=== PATIENT | female | born 1955 | race African-American/Black ===

== ENCOUNTER 2018-12-05 23:41 | Inpatient (IN) | payer MEDICARE, MEDICAID ==
[~2018-12-05] VITALS: Ht 149.9 cm; Wt 72.1 kg
[~2018-12-05 23:41] MED LIST: AMBIEN PO; BENADRYL PO; CLON0.1T PO; DIAZ2TAB PO; DILANTIN PO; METO-539 PO; NITR0.4T49 SL; SOMA PO; TYLENOL PO
[2018-12-06 01:09] LABS: BASOPHILS % 0.2 % (0.0-2.0); EOSINOPHILS % 0.9 % (0.0-5.0); HEMATOCRIT. 41.8 % (36.0-48.0); HEMOGLOBIN. 13.8 g/dL (12.0-16.0); LYMPHOCYTES % 8.6 % (20.0-50.0); MEAN CORPUSCULAR VOLUME 99.8 fL (81.0-99.0); MEAN PLATELET VOLUME 8.6 fl (7.4-10.4); MONOCYTES % 12.8 % (2.0-8.0); NEUTROPHILS % 77.5 % (40.0-76.0); PLATELET 168 x1000/uL (130-400); RED BLOOD CELL COUNT 4.18 mill/uL (4.2-5.4); RED CELL DISTRIBUTION WIDTH 14.1 % (11.6-14.6)
[2018-12-06 01:14] LABS: CHLORIDE 105 mEq/L (98-107)
[2018-12-06 01:19] LABS: ETHANOL BLOOD < 10 mg/dL
[2018-12-06] MEDS ORDERED: SODIUM CHLORIDE 0.9% 1,000 ML IV SCH (03:09)
[2018-12-06 03:10] LABS: CREATINE KINASE 869 IU/L (26-192)
[2018-12-06] MEDS ORDERED: MAGNESIUM/ALUMINUM HYDROXIDE/SIMETHICONE 30ML UDC PO PRN (03:15)
[2018-12-06] MEDS ORDERED: ONDANSETRON HCL 4MG/2ML INJ IV PRN (03:15)
[2018-12-06] MEDS ORDERED: DIPHENHYDRAMINE 50MG/ML VIAL IV PRN (03:15)
[2018-12-06] MEDS ORDERED: CLONIDINE 0.1MG TABLET PO PRN (03:15)
[2018-12-06] MEDS ORDERED: DEXTROSE 50% WATER 50ML SYRINGE IV PRN (04:00)
[2018-12-06] MEDS ORDERED: DEXT 5%/0.45% NACL 1000ML 1,000 ML IV SCH (04:00)
[2018-12-06] MEDS ORDERED: INSULIN LISPRO 100 UNITS/ML SUBCUT SCH (08:20)
[2018-12-06] MEDS ORDERED: BLOOD SUGAR DIAGNOSTIC STRIP TEST SCH (09:00)
[2018-12-06 11:30] VITALS: BP 121/67
[2018-12-06 12:00] VITALS: BP 121/67
[2018-12-06 12:27] LABS: *AMPHETAMINES SCREEN URINE NEGATIVE (NEGATIVE)
[2018-12-06 12:28] LABS: *BARBITURATES SCREEN URINE NEGATIVE (NEGATIVE); *BENZODIAZEPINES SCREEN URINE PRESUMTIVE POSITIVE (NEGATIVE); *COCAINE SCREEN URINE NEGATIVE (NEGATIVE); CANNABINOID URINE SCREEN NEGATIVE (NEGATIVE); METHADONE URINE SCREEN NEGATIVE (NEGATIVE); OPIATES URINE SCREEN PRESUMTIVE POSITIVE (NEGATIVE); PHENCYCLIDINE URINE SCREEN NEGATIVE (NEGATIVE)
[2018-12-06] MEDS ORDERED: POLYETHYLENE GLYCOL 3350 (17GM) 1 DOSE PACK PO NR (13:15)
[2018-12-06] MEDS: SODIUM BICARBONATE 100 MEQ in DEXTROSE 5% WATER 1,000 ML IV SCH ×3 (13:44)
[2018-12-06] MEDS: PHENYTOIN SODIUM EXTENDED 100MG CAPSULE PO SCH ×2 (13:44→21:55)
[2018-12-06 16:00] VITALS: BP 115/73
[2018-12-06] MEDS: DOCUSATE SODIUM 100MG CAPSULE PO SCH (17:22)
[2018-12-06 20:00] VITALS: BP 111/71
[2018-12-07 00:11] VITALS: BP 119/66
[2018-12-07] MEDS: SODIUM BICARBONATE 100 MEQ in DEXTROSE 5% WATER 1,000 ML IV SCH ×9 (02:07→21:39)
[2018-12-07 04:00] VITALS: BP 106/57
[2018-12-07] MEDS: PHENYTOIN SODIUM EXTENDED 100MG CAPSULE PO SCH ×3 (06:00→21:07)
[2018-12-07 07:55] LABS: CHLORIDE 103 mEq/L (98-107)
[2018-12-07 08:00] VITALS: BP 116/74
[2018-12-07 08:10] LABS: CREATINE KINASE 266 IU/L (26-192)
[2018-12-07 08:38] LABS: PHOSPHORUS 9.8 mg/dL (2.5-4.9)
[2018-12-07 09:17] LABS: HEMATOCRIT. 35.7 % (36.0-48.0); HEMOGLOBIN. 11.9 g/dL (12.0-16.0); MEAN CORPUSCULAR HEMOGLOBIN 32.7 pg (28.0-32.0); MEAN CORPUSCULAR VOLUME 97.7 fL (81.0-99.0); MEAN PLATELET VOLUME 8.2 fl (7.4-10.4); PLATELET 172 x1000/uL (130-400); RED BLOOD CELL COUNT 3.66 mill/uL (4.2-5.4); RED CELL DISTRIBUTION WIDTH 13.4 % (11.6-14.6)
[2018-12-07] MEDS ORDERED: IPRATROPIUM/ALBUTEROL 0.5-3(2.5)MG/3ML NEB HHN PRN (11:00)
[2018-12-07 11:16] LABS: NUCLEATED RED BLOOD CELLS 1 /100 WBC; PLATELET ESTIMATE NORMAL
[2018-12-07 11:27] LABS: CLARITY URINE CLOUDY (CLEAR); COLOR URINE DARK YELLOW (YELLOW); KETONES URINE NEGATIVE (NEGATIVE); LEUKOCYTE ESTERASE URINE 2+ (NEGATIVE); NITRITE URINE NEGATIVE (NEGATIVE); OCCULT BLOOD URINE 1+ (NEGATIVE); PROTEIN URINE 1+ (NEGATIVE); SPECIFIC GRAVITY URINE 1.015 (1.005-1.030); UROBILINOGEN URINE 0.2 E.U./dL (0.2-1.0)
[2018-12-07 12:00] VITALS: BP 128/79
[2018-12-07 12:22] LABS: BG BASE EXCESS -7.2 mmol/L (-2.0-2.0); BG CARBOXYHEMOGLOBIN 0.8 % (0.5-1.5); BG DEOXYHEMOGLOBIN 6.9 % (0.0-5.0); BG FRACTION INSPIRED OXYGEN 21; BG HCO3 ACT 17.9 mmol/L (22.0-26.0); BG METHEMOGLOBIN 0.3 % (0.0-1.5); BG PCO2 34.6 mmHg (35.0-45.0); BG PH 7.331 (7.350-7.450); BG PO2 70.3 mmHg (75.0-100.0); BG SAMPLE SITE LEFT RADIAL; BG TOTAL HEMOGLOBIN 12.1 g/dL (12.0-18.0); BG VENT MODE ROOM AIR
[2018-12-07] MEDS ORDERED: SORBITOL 70% SOLN 30ML PO NR (15:30)
[2018-12-07 16:00] VITALS: BP 120/79
[2018-12-07] MEDS: IPRATROPIUM/ALBUTEROL 0.5-3(2.5)MG/3ML NEB HHN SCH ×2 (16:00→23:00)
[2018-12-07] MEDS: DOCUSATE SODIUM 100MG CAPSULE PO SCH (16:06)
[2018-12-07 20:00] VITALS: BP 119/74
[2018-12-07] MEDS: ACETAMINOPHEN 325MG TABLET PO PRN (21:06)
[2018-12-08] VITALS: BP 96/54
[2018-12-08] MEDS: IPRATROPIUM/ALBUTEROL 0.5-3(2.5)MG/3ML NEB HHN SCH ×4 (03:19→22:38)
[2018-12-08 04:00] VITALS: BP 110/56
[2018-12-08] MEDS: PHENYTOIN SODIUM EXTENDED 100MG CAPSULE PO SCH ×3 (05:22→22:25)
[2018-12-08 06:24] LABS: BASOPHILS % 0.3 % (0.0-2.0); EOSINOPHILS % 3.1 % (0.0-5.0); HEMATOCRIT. 32.4 % (36.0-48.0); HEMOGLOBIN. 10.9 g/dL (12.0-16.0); LYMPHOCYTES % 21.3 % (20.0-50.0); MEAN CORPUSCULAR HEMOGLOBIN 32.6 pg (28.0-32.0); MEAN CORPUSCULAR VOLUME 96.6 fL (81.0-99.0); MEAN PLATELET VOLUME 8.5 fl (7.4-10.4); MONOCYTES % 13.9 % (2.0-8.0); NEUTROPHILS % 61.4 % (40.0-76.0); PLATELET 177 x1000/uL (130-400); RED BLOOD CELL COUNT 3.35 mill/uL (4.2-5.4); RED CELL DISTRIBUTION WIDTH 13.5 % (11.6-14.6)
[2018-12-08 06:36] LABS: T4 FREE 1.18 ng/dL (0.76-1.46)
[2018-12-08 06:46] LABS: PHOSPHORUS 9.1 mg/dL (2.5-4.9)
[2018-12-08 08:00] VITALS: BP 110/74
[2018-12-08] MEDS: CALCIUM ACETATE 667MG CAPSULE PO SCH ×3 (08:10→18:10)
[2018-12-08] MEDS: DOCUSATE SODIUM 100MG CAPSULE PO SCH ×2 (09:00→17:00)
[2018-12-08] MEDS ORDERED: ENOXAPARIN 30MG/0.3ML SYR SUBCUT SCH (09:00)
[2018-12-08] MEDS ORDERED: LIDOCAINE HCL 1% 20ML VIAL (Pyxis) INJ ONE ×2 (09:36→13:51)
[2018-12-08] MEDS: LEVOFLOXACIN 250MG TABLET PO SCH (11:00)
[2018-12-08 12:00] VITALS: BP 121/85
[2018-12-08 12:19] LABS: HEPATITIS B SURFACE ANTIGEN NEGATIVE
[2018-12-08] MEDS ORDERED: SODIUM BICARBONATE 4% (2.4MEQ) 5ML VIAL IV ONE (13:51)
[2018-12-08 14:00] VITALS: BP 148/64
[2018-12-08] MEDS ORDERED: IOHEXOL-300 100 ML BOTTLE ONE (14:41)
[2018-12-08 15:41] LABS: INR 1.4; PROTHROMBIN TIME 13.8 sec (9.1-11.1)
[2018-12-08] MEDS: DEXT 5%/0.45% NACL 1000ML 1,000 ML IV SCH (18:45)
[2018-12-08 20:00] VITALS: BP 119/76
[2018-12-09] VITALS: BP 103/45
[2018-12-09] MEDS: IPRATROPIUM/ALBUTEROL 0.5-3(2.5)MG/3ML NEB HHN SCH ×4 (03:07→21:11)
[2018-12-09 04:00] VITALS: BP 110/60
[2018-12-09] MEDS: DEXT 5%/0.45% NACL 1000ML 1,000 ML IV SCH ×3 (04:45→18:37)
[2018-12-09] MEDS: PHENYTOIN SODIUM EXTENDED 100MG CAPSULE PO SCH ×2 (06:06→13:56)
[2018-12-09 07:05] LABS: HEMATOCRIT. 33.3 % (36.0-48.0); HEMOGLOBIN. 11.2 g/dL (12.0-16.0); MEAN CORPUSCULAR HEMOGLOBIN 32.3 pg (28.0-32.0); MEAN CORPUSCULAR VOLUME 96.4 fL (81.0-99.0); MEAN PLATELET VOLUME 8.4 fl (7.4-10.4); PLATELET 165 x1000/uL (130-400); RED BLOOD CELL COUNT 3.45 mill/uL (4.2-5.4); RED CELL DISTRIBUTION WIDTH 13.8 % (11.6-14.6)
[2018-12-09 08:00] VITALS: BP 104/63
[2018-12-09] MEDS: DOCUSATE SODIUM 100MG CAPSULE PO SCH ×3 (09:00→18:36)
[2018-12-09] MEDS: CALCIUM ACETATE 667MG CAPSULE PO SCH ×4 (09:28→18:36)
[2018-12-09 10:11] LABS: ATYPICAL LYMPHOCYTES 1
[2018-12-09 10:12] LABS: PLATELET ESTIMATE NORMAL
[2018-12-09 10:44] LABS: CLARITY URINE CLOUDY (CLEAR); COLOR URINE YELLOW (YELLOW); KETONES URINE NEGATIVE (NEGATIVE); LEUKOCYTE ESTERASE URINE 2+ (NEGATIVE); NITRITE URINE NEGATIVE (NEGATIVE); OCCULT BLOOD URINE 2+ (NEGATIVE); PROTEIN URINE 2+ (NEGATIVE); SPECIFIC GRAVITY URINE 1.014 (1.005-1.030)
[2018-12-09 12:00] VITALS: BP 110/69
[2018-12-09] MEDS: GUAIFENESIN-DM 200MG-20MG/10ML UDC PO PRN (12:18)
[2018-12-09 16:00] VITALS: BP 114/63
[2018-12-09 17:56] LABS: HEPATITIS B SURFACE AB 286.1 mIU/mL
[2018-12-09] MEDS: LEVETIRACETAM 500MG/5ML CUP PO SCH (21:02)
[2018-12-09] MEDS: ACETAMINOPHEN 325MG TABLET PO PRN (23:34)
[2018-12-10 00:08] VITALS: BP 132/74
[2018-12-10] MEDS: DEXT 5%/0.45% NACL 1000ML 1,000 ML IV SCH ×2 (01:08→09:24)
[2018-12-10] MEDS: IPRATROPIUM/ALBUTEROL 0.5-3(2.5)MG/3ML NEB HHN SCH ×3 (01:31→21:55)
[2018-12-10 04:00] VITALS: BP 97/63
[2018-12-10 07:28] LABS: BASOPHILS % 0.2 % (0.0-2.0); EOSINOPHILS % 2.3 % (0.0-5.0); HEMATOCRIT. 32.2 % (36.0-48.0); HEMOGLOBIN. 10.8 g/dL (12.0-16.0); MEAN CORPUSCULAR HEMOGLOBIN 32.8 pg (28.0-32.0); MEAN CORPUSCULAR VOLUME 97.8 fL (81.0-99.0); MEAN PLATELET VOLUME 8.2 fl (7.4-10.4); MONOCYTES % 12.7 % (2.0-8.0); NEUTROPHILS % 59.8 % (40.0-76.0); PLATELET 126 x1000/uL (130-400); RED BLOOD CELL COUNT 3.29 mill/uL (4.2-5.4); RED CELL DISTRIBUTION WIDTH 13.8 % (11.6-14.6)
[2018-12-10 08:00] VITALS: BP 111/62
[2018-12-10] MEDS: DOCUSATE SODIUM 100MG CAPSULE PO SCH ×2 (09:11→17:12)
[2018-12-10] MEDS: CALCIUM ACETATE 667MG CAPSULE PO SCH ×3 (09:11→17:12)
[2018-12-10] MEDS: LEVETIRACETAM 500MG/5ML CUP PO SCH ×2 (09:13→21:38)
[2018-12-10] MEDS: GUAIFENESIN-DM 200MG-20MG/10ML UDC PO PRN (09:26)
[2018-12-10 10:27] LABS: PHOSPHORUS 4.5 mg/dL (2.5-4.9)
[2018-12-10 12:00] VITALS: BP 126/83
[2018-12-10] MEDS: LEVOFLOXACIN 250MG TABLET PO SCH (12:53)
[2018-12-10] MEDS: DEXT 5%/0.9% NACL 1,000 ML IV SCH ×2 (14:27→23:34)
[2018-12-10 16:00] VITALS: BP 118/79
[2018-12-10 20:00] VITALS: BP 131/64
[2018-12-11] VITALS (8 sets, daily range): BP systolic 106–127; BP diastolic 52–87
[2018-12-11] MEDS: IPRATROPIUM/ALBUTEROL 0.5-3(2.5)MG/3ML NEB HHN SCH ×4 (03:02→20:18)
[2018-12-11 07:47] LABS: BASOPHILS % 0.3 % (0.0-2.0); EOSINOPHILS % 5.1 % (0.0-5.0); HEMATOCRIT. 30.2 % (36.0-48.0); MEAN CORPUSCULAR HEMOGLOBIN 32.8 pg (28.0-32.0); MEAN CORPUSCULAR VOLUME 98.5 fL (81.0-99.0); MEAN PLATELET VOLUME 8.5 fl (7.4-10.4); MONOCYTES % 10.6 % (2.0-8.0); PLATELET 115 x1000/uL (130-400); RED BLOOD CELL COUNT 3.07 mill/uL (4.2-5.4); RED CELL DISTRIBUTION WIDTH 13.5 % (11.6-14.6)
[2018-12-11 08:16] LABS: PHOSPHORUS 3.3 mg/dL (2.5-4.9)
[2018-12-11 09:09] LABS: GLOMERULAR BASEMENT MEMB AB 7 units (0-20)
[2018-12-11] MEDS: CALCIUM ACETATE 667MG CAPSULE PO SCH ×3 (09:09→16:42)
[2018-12-11] MEDS: DOCUSATE SODIUM 100MG CAPSULE PO SCH ×2 (09:09→16:40)
[2018-12-11] MEDS: LEVETIRACETAM 500MG/5ML CUP PO SCH (09:09)
[2018-12-11 13:06] LABS: ANA IFA Negative (.); ANTI-MYELOPEROXIDASE AB < 9.0 U/mL (0.0-9.0); ANTI-PROTEINASE 3 ABS < 3.5 U/mL (0.0-3.5)
[2018-12-11 14:17] LABS: ATYPICAL P-ANCA <1:20 titer (Neg:<1:20); CYTOPLASMIC C-ANCA <1:20 titer (Neg:<1:20); PERINUCLEAR P-ANCA <1:20 titer (Neg:<1:20)
[2018-12-12 15:11] LABS: ANTI-DNA DOUBLE STRANDED QUANT 2 IU/mL (0-9)
[2018-12-15 06:20] LABS: COMPLEMENT C3 116 mg/dL (82-167)
== END 2018-12-11 21:05 | DRG 871 ==
LOC: ER 23:41 → EDBEDREQTM 12-06 02:19 → EDBEDREQ 12-06 02:19 → ENRESERV 12-06 07:52 → 7WST 12-06 07:52
PROVIDERS: ADMIT Internal Medicine; ATTEND Internal Medicine
PROC: 5A1D70Z Performance of Urinary Filtration, Intermittent, Less than 6 Hours Per Day (ICD-10-PCS; principal; 2018-12-08)
PROC: 02HV33Z Insertion of Infusion Device into Superior Vena Cava, Percutaneous Approach (ICD-10-PCS; 2018-12-08)
PROC: B5181ZA Fluoroscopy of Superior Vena Cava using Low Osmolar Contrast, Guidance (ICD-10-PCS; 2018-12-08)
PROC: B548ZZA Ultrasonography of Superior Vena Cava, Guidance (ICD-10-PCS; 2018-12-08)
DX: A40.9 Streptococcal sepsis, unspecified (principal); N18.6 End stage renal disease; J96.00 Acute respiratory failure, unspecified whether with hypoxia or hypercapnia; G92 Toxic encephalopathy; N17.9 Acute kidney failure, unspecified; E87.2 Acidosis; I50.32 Chronic diastolic (congestive) heart failure; I13.2 Hypertensive heart and chronic kidney disease with heart failure and with stage 5 chronic kidney disease, or end stage renal disease; N39.0 Urinary tract infection, site not specified; I69.354 Hemiplegia and hemiparesis following cerebral infarction affecting left non-dominant side; M47.812 Spondylosis without myelopathy or radiculopathy, cervical region; G89.29 Other chronic pain; E11.22 Type 2 diabetes mellitus with diabetic chronic kidney disease; M41.9 Scoliosis, unspecified; E03.9 Hypothyroidism, unspecified; B19.20 Unspecified viral hepatitis C without hepatic coma; D72.821 Monocytosis (symptomatic); E87.5 Hyperkalemia; G40.909 Epilepsy, unspecified, not intractable, without status epilepticus; I25.10 Atherosclerotic heart disease of native coronary artery without angina pectoris; M50.323 Other cervical disc degeneration at C6-C7 level; F32.9 Major depressive disorder, single episode, unspecified; W18.39XA Other fall on same level, initial encounter; F41.9 Anxiety disorder, unspecified; Z88.9 Allergy status to unspecified drugs, medicaments and biological substances; I25.2 Old myocardial infarction; Z59.0 Homelessness; Z82.5 Family history of asthma and other chronic lower respiratory diseases; Z99.2 Dependence on renal dialysis; Y93.89 Activity, other specified; Y92.89 Other specified places as the place of occurrence of the external cause; Y99.8 Other external cause status; Z88.5 Allergy status to narcotic agent; Z88.0 Allergy status to penicillin; Z88.6 Allergy status to analgesic agent; Z91.040 Latex allergy status
CPT/HCPCS: 36415; 36556; 36600; 71045; 72100; 72170; 74018; 76770; 76937; 77001; 80048; 80185; 80305; 82140; 82375; 82550; 82805; 82962; 83036; 83520; 83605; 83735; 83880; 84100; 84439; 84443; 84484; 85651; 86160; 86225; 86256; 86705; 86706; 86803; 87077; 87340; 93005; 93970; 94640; 96360; 96361; 97116; 97163; 97166; 99285; C1752; C1893; J1642; J3490; J7042; J7070; J7620; Q9967